=== PATIENT | male | born 1980 | race American Indian/Alaskan Native ===

== ENCOUNTER 2019-06-26 14:55 | Emergency (ER) | payer SELFPAY ==
[2019-06-26 15:05] VITALS: BP 132/95
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
== END 2019-06-26 17:39 | disposition home or self-care (01) ==
LOC: ED 14:55
DX: S02.2XXA Fracture of nasal bones, initial encounter for closed fracture (principal); R07.89 Other chest pain; G43.909 Migraine, unspecified, not intractable, without status migrainosus; F14.10 Cocaine abuse, uncomplicated; F17.200 Nicotine dependence, unspecified, uncomplicated; Z90.49 Acquired absence of other specified parts of digestive tract; Y04.8XXA Assault by other bodily force, initial encounter; Y93.89 Activity, other specified; Y92.89 Other specified places as the place of occurrence of the external cause; Y99.8 Other external cause status
CPT/HCPCS: 71046

== ENCOUNTER 2020-11-15 23:07 | Emergency (ER) | payer SELFPAY ==
[2020-11-16 02:37] VITALS: BP 146/100
== END 2020-11-16 02:01 | disposition left against medical advice (07) ==
LOC: ED 23:07
DX: R53.1 Weakness (principal); Z53.21 Procedure and treatment not carried out due to patient leaving prior to being seen by health care provider

== ENCOUNTER 2020-11-16 06:47 | Emergency (ER) | payer OTHER ==
[2020-11-16 07:38] VITALS: BP 146/95
--- NOTE | 2020-11-16 07:55 | Emergency Department Report ---
HPI - General Time Seen by Provider: 11/16/20 07:40 - HPI HPI: MSE 5 The patient is a 39-year-old male present with a chief complaint of cough. Patient states he came to the emergency department because he has had a cough productive of green sputum for the past 2 days. Patient denies history of fever. Patient denies having any other complaints. Patient states he received a Covid vaccination several months ago when he was incarcerated ED Past Medical Hx - Past Medical History Hx Headaches / Migraines: Yes Additional medical history: cocaine abuse - Surgical History Hx Appendectomy: Yes Additional Surgical History: Tonsillectomy - Family History Family history: no significant - Social History Smoking Status: Current Every Day Smoker (1/3 pack/day) Substance Use Type: Alcohol, Cocaine - Medications Home Medications: Home Medications Medication Instructions Recorded Confirmed Last Taken Type Albuterol Mdi (or & Nicu Only) 2 puff IH QID PRN #8.5 gram 11/16/20 Unknown Rx [ProAir HFA Inhaler] Azithromycin [Zithromax Z-YOANNA] 0 mg PO DAILY #6 tab 11/16/20 Unknown Rx Benzonatate [Tessalon Perles] 100 mg PO Q8HR #30 capsule 11/16/20 Unknown Rx Prednisone [predniSONE 10 mg 10 mg PO .TAPER #1 tab.ds.pk 11/16/20 Unknown Rx (6-Day Pack, 21 Tabs)] ED Review of Systems ROS: Stated complaint: COUGH Other details as noted in HPI Constitutional: denies: fever Eyes: denies: eye pain ENT: denies: throat pain Respiratory: cough Cardiovascular: denies: chest pain Endocrine: no symptoms reported Gastrointestinal: denies: abdominal pain Genitourinary: denies: dysuria Musculoskeletal: denies: back pain Neurological: denies: headache Physical Exam - Physical Exam Vital Signs: Vital Signs 11/16/20 11/16/20 07:06 07:07 Temperature 98.1 F 98.1 F Pulse Rate 86 87 Respiratory 18 Rate Blood Pressure 146/95 O2 Sat by Pulse 92 95 Oximetry Physical Exam: GENERAL: The patient is well-developed well-nourished male lying on stretcher sleeping not appearing to be in acute distress. Requires tactile stimulation to awaken HEENT: Normocephalic. Atraumatic. Extraocular motions are intact. Patient has moist mucous membranes. NECK: Supple. Trachea midline CHEST/LUNGS: Clear to auscultation. There is no respiratory distress noted. Occasional cough HEART/CARDIOVASCULAR: Regular. There is no tachycardia. There is no gallop rub or murmur. ABDOMEN: Abdomen is soft, nontender. Patient has normal bowel sounds. There is no abdominal distention. SKIN: There is no rash. There is no edema. There is no diaphoresis. NEURO: The patient is asleep requiring tactile and verbal stimulation to awaken but then he becomes oriented and answers questions appropriately. The patient is cooperative. The patient has no focal neurologic deficits. The patient has normal speech. GCS 14 MUSCULOSKELETAL:There is no evidence of acute injury. ED Course Vital Signs 11/16/20 11/16/20 07:06 07:07 Temperature 98.1 F 98.1 F Pulse Rate 86 87 Respiratory 18 Rate Blood Pressure 146/95 O2 Sat by Pulse 92 95 Oximetry - Reevaluation(s) Reevaluation #1: 11/16/20 10:28 2-minute walking SPO2 90% on room air ED Medical Decision Making - Lab Data Result diagrams: 11/16/20 08:00 11/16/20 08:00 Laboratory Tests 11/16/20 11/16/20 08:00 08:00 WBC 7.6 RBC 4.42 Hgb 13.3 Hct 39.7 MCV 90 MCH 30 MCHC 34 RDW 16.4 H Plt Count 367 Lymph % (Auto) 7.6 L Archuleta % (Auto) 14.5 H Eos % (Auto) 0.2 Baso % (Auto) 2.2 H Lymph # (Auto) 0.6 L Archuleta # (Auto) 1.1 H Eos # (Auto) 0.0 Baso # (Auto) 0.2 H Seg Neutrophils % 75.5 H Seg Neutrophils # 5.7 Sodium 134 L Potassium 3.9 Chloride 94.1 L Carbon Dioxide 26 Anion Gap 18 BUN 6 L Creatinine 0.6 L Estimated GFR > 60 BUN/Creatinine Ratio 10 Glucose 92 Calcium 8.7 - Radiology Data Radiology results: report reviewed (Chest x-ray), image reviewed (Chest x-ray) interpreted by me: Chest x-ray-no definite focal infiltrates, no pneumothorax [facility] [address] [place] [address] XRay Report Signed Patient: NADINE LEON MR#: [id number] : 1980 Acct:[id number] Age/Sex: 39 / M ADM Date: 11/16/20 Loc: ED Attending Dr: Ordering Physician: KIM RAMON MD Date of Service: 11/16/20 Procedure(s): XR chest routine 2V Accession Number(s): [id number] cc: KIM RAMON MD Fluoro Time In Minutes: CHEST 2 VIEWS INDICATION / CLINICAL INFORMATION: Cough. Shortness of breath. COMPARISON: 2 views of the chest dated 06/26/2019. FINDINGS: SUPPORT DEVICES: None. HEART / MEDIASTINUM: No significant abnormality. LUNGS / PLEURA: There are mild bibasilar opacities, left greater than right. The lungs are otherwise clear. No significant pleural effusion. No pneumothorax. ADDITIONAL FINDINGS: No significant additional findings. IMPRESSION: Suspected bibasilar pneumonia. Continued radiographic follow-up to resolution is recommended. Signer Name: David Leal MD Signed: 11/16/2020 9:08 AM Workstation Name: [id number] Transcribed By: MN Dictated By: David Leal MD Electronically Authenticated By: David Leal MD Signed Date/Time: 11/16/20907 DD/ 6 TD/TT: Print Cancel - Differential Diagnosis Pneumonia, bronchitis, URI, Covid Critical care attestation.: If time is entered above; I have spent that time in minutes in the direct care of this critically ill patient, excluding procedure time. ED Disposition Clinical Impression: Acute bronchitis Disposition: 01 HOME / SELF CARE / HOMELESS Is pt being admited?: No Does the pt Need Aspirin: No Condition: Stable Instructions: Acute Bronchitis (ED), Acute Bronchitis, Adult, [id number], COVID-19 Additional Instructions: Return to the emergency department should you develop worsening symptoms, inability to tolerate food or liquids, high fever or any other concerns Prescriptions: Prednisone [predniSONE 10 mg (6-Day Pack, 21 Tabs)] 10 mg PO .TAPER #1 tab.ds.pk Albuterol Mdi (or & Nicu Only) [ProAir HFA Inhaler] 2 puff IH QID PRN #8.5 gram PRN Reason: Shortness Of Breath Benzonatate [Tessalon Perles] 100 mg PO Q8HR #30 capsule Azithromycin [Zithromax Z-YOANNA] 0 mg PO DAILY #6 tab Referrals: NICA CASTANEDA MD [Staff Physician] - 3-5 Days [facility] [Provider Group] - 3-5 Days Time of Disposition: 10:31
[2020-11-16 08:30] LABS: Blood Urea Nitrogen 6 mg/dL (9-20); Calcium 8.7 mg/dL (8.4-10.2); Hemolysis Index 13
[2020-11-16 08:33] LABS: Basophils # (Auto) 0.2 K/mm3 (0.0-0.1); Basophils % (Auto) 2.2 % (0.0-1.8); Eosinophils % (Auto) 0.2 % (0.0-4.3); Hematocrit 39.7 % (35.5-45.6); Hemoglobin 13.3 gm/dl (11.8-15.2); Lymphocytes # (Auto) 0.6 K/mm3 (1.2-5.4); Lymphocytes % (Auto) 7.6 % (13.4-35.0); Mean Corpuscular HGB Conc 34 % (32-34); Mean Corpuscular Volume 90 fl (84-94); Monocytes # (Auto) 1.1 K/mm3 (0.0-0.8); Monocytes % (Auto) 14.5 % (0.0-7.3); Platelet Count 367 K/mm3 (140-440); Red Blood Count 4.42 M/mm3 (3.65-5.03); Red Cell Distribution Width 16.4 % (13.2-15.2)
[2020-11-16 08:35] LABS: BUN/Creatinine Ratio 10
--- NOTE | 2020-11-16 09:13 | XRay Report ---
CHEST 2 VIEWS INDICATION / CLINICAL INFORMATION: Cough. Shortness of breath. COMPARISON: 2 views of the chest dated 06/26/2019. FINDINGS: SUPPORT DEVICES: None. HEART / MEDIASTINUM: No significant abnormality. LUNGS / PLEURA: There are mild bibasilar opacities, left greater than right. The lungs are otherwise clear. No significant pleural effusion. No pneumothorax. ADDITIONAL FINDINGS: No significant additional findings. IMPRESSION: Suspected bibasilar pneumonia. Continued radiographic follow-up to resolution is recommended. Signer Name: David Leal MD Signed: 11/16/2020 9:08 AM Workstation Name: [id number]
== END 2020-11-16 10:43 | disposition home or self-care (01) ==
LOC: ED 06:47
DX: J20.9 Acute bronchitis, unspecified (principal); G43.909 Migraine, unspecified, not intractable, without status migrainosus; F12.90 Cannabis use, unspecified, uncomplicated; F14.10 Cocaine abuse, uncomplicated; F17.200 Nicotine dependence, unspecified, uncomplicated; Z90.49 Acquired absence of other specified parts of digestive tract; Z90.89 Acquired absence of other organs; Z72.89 Other problems related to lifestyle; Z79.899 Other long term (current) drug therapy
CPT/HCPCS: 36415; 71046; 80048; 85025; 99283

== ENCOUNTER 2020-12-20 09:39 | Emergency (ER) | payer SELFPAY ==
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
--- NOTE | 2020-12-20 10:13 | XRay Report ---
CHEST 1 VIEW INDICATION / CLINICAL INFORMATION: Altered Mental Status STUDY TIME: 952 COMPARISON: 11/16/2020 FINDINGS: SUPPORT DEVICES: None HEART / MEDIASTINUM: No significant abnormality. LUNGS / PLEURA: No significant acute pulmonary or pleural abnormality. No pneumothorax. ADDITIONAL FINDINGS: No significant additional findings. IMPRESSION: No significant acute abnormality Signer Name: Sanjay Avila MD Signed: 12/20/2020 10:08 AM Workstation Name: [id number]
[2020-12-20] MEDS ORDERED: SODIUM CHLORIDE 0.9% 1000 ML 1,000 ML IV ONE (10:15)
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
[2020-12-20 10:29] VITALS: BP 146/88
--- NOTE | 2020-12-21 09:47 | Electrocardiograph Report ---
[facility] Test Date: 2020-12-20 Test Time: 10:00:08 Pat Name: NADINE LEON Department: Room: Gender: M [employer]ic: : 1980 Requested By: BLANCA SEQUEIRA Order Number: [id number] Reading MD: Blade Celaya Measurements Intervals [place] Rate: 78 P: 81 [place]: 153 QRS: 84 QRSD: 103 T: 69 QT: 441 QTc: 503 Interpretive Statements Sinus rhythm Prolonged QT interval No previous ECG available for comparison Electronically Signed On 12-21-2020 9:47:09 EDT by Blade Celaya
== END 2020-12-20 11:19 | disposition left against medical advice (07) ==
LOC: ED 09:39
DX: R40.4 Transient alteration of awareness (principal); F17.200 Nicotine dependence, unspecified, uncomplicated; G43.909 Migraine, unspecified, not intractable, without status migrainosus; F14.90 Cocaine use, unspecified, uncomplicated; Z90.89 Acquired absence of other organs; Z72.89 Other problems related to lifestyle
CPT/HCPCS: 71045; 82962; 93005; 99284

== ENCOUNTER 2021-02-14 23:23 | Emergency (ER) | payer SELFPAY ==
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
[2021-02-15] MEDS ORDERED: HYDROcodone/ACETAMINOPHEN 10-325MG TAB PO ONE (11:18)
[2021-02-15] MEDS ORDERED: KETOROLAC 10 MG TAB PO ONE (11:18)
[2021-02-15 11:48] VITALS: BP 139/91
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
[2021-02-15] MEDS ORDERED: NEOMY 3.5 MG/BACIT 400 UNITS/POLY B 5000 UNITS/GM OINT PACKET TP ONE (12:34)
== END 2021-02-15 13:40 | disposition home or self-care (01) ==
LOC: ED 23:23
DX: S80.02XA Contusion of left knee, initial encounter (principal); L03.116 Cellulitis of left lower limb; G43.909 Migraine, unspecified, not intractable, without status migrainosus; F14.10 Cocaine abuse, uncomplicated; M25.462 Effusion, left knee; S80.212A Abrasion, left knee, initial encounter; X58.XXXA Exposure to other specified factors, initial encounter; Y93.89 Activity, other specified; Y92.89 Other specified places as the place of occurrence of the external cause; Y99.8 Other external cause status
CPT/HCPCS: 99284

== ENCOUNTER 2021-03-25 15:10 | Emergency (ER) | payer SELFPAY ==
[2021-03-25] MEDS ORDERED: NALOXONE 0.4 MG/1 ML INJ IV PRN (15:29)
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
[2021-03-26 02:47] LABS: Alanine Aminotransferase 21 units/L (7-56); Albumin 4.2 g/dL (3.9-5); BUN/Creatinine Ratio 10; Blood Urea Nitrogen 8 mg/dL (9-20); Calcium 9.5 mg/dL (8.4-10.2); Hemolysis Index 5
[2021-03-26 04:03] LABS: Basophils # (Auto) 0.1 K/mm3 (0.0-0.1); Basophils % (Auto) 1.1 % (0.0-1.8); Eosinophils # (Auto) 0.2 K/mm3 (0.0-0.4); Eosinophils % (Auto) 3.7 % (0.0-4.3); Hematocrit 45.2 % (35.5-45.6); Hemoglobin 14.8 gm/dl (11.8-15.2); Lymphocytes # (Auto) 1.4 K/mm3 (1.2-5.4); Lymphocytes % (Auto) 24.8 % (13.4-35.0); Mean Corpuscular HGB Conc 33 % (32-34); Mean Corpuscular Volume 92 fl (84-94); Monocytes # (Auto) 0.6 K/mm3 (0.0-0.8); Monocytes % (Auto) 11.1 % (0.0-7.3); Platelet Count 466 K/mm3 (140-440); Red Blood Count 4.92 M/mm3 (3.65-5.03); Red Cell Distribution Width 15.5 % (13.2-15.2)
[2021-03-26 07:25] VITALS: BP 127/82
== END 2021-03-26 07:25 | disposition home or self-care (01) ==
LOC: ED 15:10
DX: T40.1X1A Poisoning by heroin, accidental (unintentional), initial encounter (principal); F11.129 Opioid abuse with intoxication, unspecified; Z79.899 Other long term (current) drug therapy; Y92.89 Other specified places as the place of occurrence of the external cause
CPT/HCPCS: 36415; 80053; 80320; 83735; 85025; 99283; G0480

== ENCOUNTER 2021-03-28 02:39 | Emergency (ER) | payer SELFPAY ==
--- NOTE | 2021-03-28 06:28 | Emergency Department Report ---
ED Lower Extremity HPI - General Stated Complaint: LEG PAIN Time Seen by Provider: 03/28/21 06:26 - History of Present Illness Initial Comments: Patient presents with left knee pain. He has had chronic knee pain for "some time." Patient states that the pain is more medial and lateral. Medial side is more tender than the lateral side. He fell on it months ago. He has had ongoing and chronic pain. He does not know why. He has not taken anything s pecifically for this. There is no new trauma. Has no new fevers or chills. There is no new cough or congestion. He has no ankle pain or hip pain on the left. He has no other joint pain. He came in tonight because he wanted something for pain and he is tired of hurting. Patient has no other complaints at this time. The pain is exacerbated by walking and palpation. - Related Data Previous Rx's Medication Instructions Recorded Last Taken Type Albuterol Mdi (or & Nicu Only) 2 puff IH QID PRN #8.5 gram 11/16/20 Unknown Rx [ProAir HFA Inhaler] Ibuprofen [Motrin] 600 mg PO Q8H PRN #20 tablet 03/28/21 Unknown Rx Allergies Allergy/AdvReac Type Severity Reaction Status Date / Time No Known Allergies Allergy Verified 02/15/21 00:26 ED Review of Systems ROS: Stated complaint: LEG PAIN Other details as noted in HPI Comment: All other systems reviewed and negative Constitutional: denies: fever Eyes: denies: eye pain ENT: denies: throat pain Respiratory: denies: cough Cardiovascular: denies: chest pain Endocrine: denies: unexplained weight loss Gastrointestinal: denies: abdominal pain Genitourinary: denies: dysuria Musculoskeletal: as per HPI Skin: denies: rash Neurological: denies: headache Hematological/Lymphatic: denies: easy bruising ED Past Medical Hx - Past Medical History Hx Headaches / Migraines: Yes Additional medical history: cocaine abuse. Chronic knee pain - Surgical History Hx Appendectomy: Yes Additional Surgical History: Tonsillectomy - Family History Family history: no significant - Social History Smoking Status: Current Every Day Smoker (1/3 pack/day) Substance Use Type: Alcohol, Cocaine - Medications Home Medications: Home Medications Medication Instructions Recorded Confirmed Last Taken Type Albuterol Mdi (or & Nicu Only) 2 puff IH QID PRN #8.5 gram 11/16/20 Unknown Rx [ProAir HFA Inhaler] Ibuprofen [Motrin] 600 mg PO Q8H PRN #20 tablet 03/28/21 Unknown Rx ED Physical Exam - General Limitations: No Limitations, Other (Pulse ox noted and normal) General appearance: alert, in no apparent distress - Head Head exam: Present: atraumatic, normocephalic - Eye Eye exam: Present: normal appearance, EOMI - ENT ENT exam: Present: normal external ear exam - Neck Neck exam: Present: normal inspection. Absent: meningismus - Respiratory Respiratory exam: Absent: respiratory distress - Cardiovascular Cardiovascular Exam: Absent: JVD - Extremities Exam Extremities exam: Present: normal capillary refill, other (Tenderness diffusely involving the medial aspect of the left knee. There is no effusion. There is no erythema. There is no ligamentous instability. Patella is not ballotable and there is no patellar tenderness.) - Back Exam Back exam: Present: full ROM - Neurological Exam Neurological exam: Present: alert, oriented X3, abnormal gait (Antalgic) - Psychiatric Psychiatric exam: Present: normal affect, normal mood - Skin Skin exam: Present: warm, dry ED Course Vital Signs 03/28/21 06:30 Temperature 98 F Pulse Rate 78 Respiratory 18 Rate Blood Pressure 136/78 O2 Sat by Pulse 100 Oximetry - Reevaluation(s) Reevaluation #1: 03/28/21 06:41 Patient was discharged. ED Lower Extremity MDM - Medical Decision Making Patient presents with an exacerbation of chronic knee pain. He does not have a polyarticular arthritis. I am not concerned for any kind of infectious pathology as there is no warmth or erythema. He has no recent trauma that would suggest acute fracture or dislocation. There is no effusion. This certainly is not concerning for septic arthritis at this time. Patient was treated empirically and referred to orthopedic surgery. Critical Care Time: No Critical care attestation.: If time is entered above; I have spent that time in minutes in the direct care of this critically ill patient, excluding procedure time. ED Disposition Clinical Impression: Chronic knee pain Qualifiers: Laterality: left Qualified Code(s): M25.562 - Pain in left knee Disposition: HOME / SELF CARE / HOMELESS Is pt being admited?: No Condition: Stable Instructions: Chronic Knee Pain, Adult, [id number] Additional Instructions: ICE AND ELEVATE. SEE A REGULAR DOCTOR. Prescriptions: Ibuprofen [Motrin] 600 mg PO Q8H PRN #20 tablet PRN Reason: Pain Referrals: CY EDEN MD [Staff Physician] - 3-5 Days
[2021-03-28 06:39] VITALS: BP 136/78
== END 2021-03-28 06:39 | disposition home or self-care (01) ==
LOC: ED 02:39
DX: M25.562 Pain in left knee (principal); G43.909 Migraine, unspecified, not intractable, without status migrainosus
CPT/HCPCS: 99282

== ENCOUNTER 2021-04-26 09:22 | Emergency (ER) | payer SELFPAY ==
--- NOTE | 2021-04-26 09:49 | Emergency Department Report ---
ED General Adult HPI - General Chief complaint: Pain General Stated complaint: HOMELESS SLEEPING IN FAMILY [employer]LLAR WITH TOE PAIN - History of Present Illness Initial comments: Patient was brought in by EMS for possible foot pain. They state that they were called because the patient walked into a store and lay down on the floor. When they arrived on scene, the patient stated that he was just cold. They informed him that lying on the floor in a public store was not a place to get warm. He then reported to them that he had toe pain and wanted to come here. They transported the patient here. They did state that when they were trying to get vitals he was very aggressive and abrupt with him. He became combative when they were trying to check vitals. Upon arrival here, patient is in a wheelchair. I tried to ask him what is going on. He will not cooperate. He will say that his toe hurts, but then would not tell me which foot. He would not tell me if there was an injury. He would not answer questions. I tried to talk to him with paramedics around as well as other staff. He just kept his head covered up with his coat and would not answer questions. I asked if I could take his sock off and look at his foot. He told me "not do not worry about it." It just hurts. I offered analgesics. The patient remained mute. - Related Data Previous Rx's Medication Instructions Recorded Last Taken Type Albuterol Mdi (or & Nicu Only) 2 puff IH QID PRN #8.5 gram 11/16/20 Unknown Rx [ProAir HFA Inhaler] Ibuprofen [Motrin] 600 mg PO Q8H PRN #20 tablet 03/28/21 Unknown Rx Allergies Allergy/AdvReac Type Severity Reaction Status Date / Time No Known Allergies Allergy Verified 02/15/21 00:26 ED Review of Systems ROS: Stated complaint: HOMELESS SLEEPING IN FAMILY DOLLAR WITH TOE PAIN Other details as noted in HPI Comment: Unobtainable due to pts medical conditions (Uncooperative) ED Past Medical Hx - Past Medical History Hx Headaches / Migraines: Yes Additional medical history: Cannot be obtained from the patient secondary to uncooperative nature. Cocaine abuse. Chronic knee pain - Surgical History Hx Appendectomy: Yes Additional Surgical History: Cannot be obtained from the patient secondary to uncooperative nature. Tonsillectomy - Family History Family history: other (Cannot be obtained from the patient secondary to uncooperative nature) - Social History Smoking Status: Current Every Day Smoker (1/3 pack/day) Substance Use Type: Alcohol, Cocaine, Other (Cannot be obtained from the patient secondary to uncooperative nature) - Medications Home Medications: Home Medications Medication Instructions Recorded Confirmed Last Taken Type Albuterol Mdi (or & Nicu Only) 2 puff IH QID PRN #8.5 gram 11/16/20 Unknown Rx [ProAir HFA Inhaler] Ibuprofen [Motrin] 600 mg PO Q8H PRN #20 tablet 03/28/21 Unknown Rx ED Physical Exam - General Limitations: Physical Limitation (Cannot be obtained from the patient secondary to uncooperative nature), Other (Pulse ox was noted by paramedics. Patient became combative when we tried to get vitals.) General appearance: alert, other (Sitting in a wheelchair with his head covered up in a coat. He is unkempt. He will not answer questions.) - Psychiatric Psychiatric exam: Present: other (He is uncooperative. He does move his arms in a combative nature. He will not allow any other exam.) ED Course - Reevaluation(s) Reevaluation #1: 04/26/21 09:48 EMS was met upon arrival. We attempted to examine the patient and discuss care with the patient. We attempted to provide services and obtain vitals. He be came combative and agitated. He was swinging at staff. At this point, we attempted to have him sign out AGAINST MEDICAL ADVICE because he would not cooperate. He would not allow any intervention. He refused to sign anything. Critical Care Time: No Critical care attestation.: If time is entered above; I have spent that time in minutes in the direct care of this critically ill patient, excluding procedure time. ED Disposition Clinical Impression: Homelessness, Uncooperative behavior Disposition: 01 HOME / SELF CARE / HOMELESS Is pt being admited?: No Condition: Stable Forms: AMA Form
== END 2021-04-26 09:26 | disposition left against medical advice (07) ==
LOC: ED 09:22
DX: R46.89 Other symptoms and signs involving appearance and behavior (principal); Z59.00 Homelessness unspecified; Z90.89 Acquired absence of other organs
CPT/HCPCS: 99283

== ENCOUNTER 2021-08-19 01:05 | Emergency (ER) | payer SELFPAY ==
[2021-08-19] MEDS ORDERED: SODIUM CHLORIDE 0.9% 1000 ML 1,000 ML IV ONE (02:15)
[2021-08-19 02:48] LABS: Basophils # (Auto) 0.1 K/mm3 (0.0-0.1); Eosinophils # (Auto) 0.3 K/mm3 (0.0-0.4); Eosinophils % (Auto) 4.9 % (0.0-4.3); Hematocrit 40.1 % (35.5-45.6); Hemoglobin 13.5 gm/dl (11.8-15.2); Lymphocytes # (Auto) 2.1 K/mm3 (1.2-5.4); Lymphocytes % (Auto) 39.3 % (13.4-35.0); Mean Corpuscular HGB Conc 34 % (32-34); Mean Corpuscular Volume 93 fl (84-94); Monocytes # (Auto) 0.5 K/mm3 (0.0-0.8); Monocytes % (Auto) 9.8 % (0.0-7.3); Platelet Count 253 K/mm3 (140-440); Red Blood Count 4.32 M/mm3 (3.65-5.03); Red Cell Distribution Width 15.8 % (13.2-15.2)
[2021-08-19 02:54] LABS: Alanine Aminotransferase 23 units/L (7-56); BUN/Creatinine Ratio 13; Blood Urea Nitrogen 10 mg/dL (9-20); Calcium 8.9 mg/dL (8.4-10.2); Hemolysis Index 6
[2021-08-19 04:26] LABS: Bilirubin,Urine NEG (Negative); Blood,Urine NEG (Negative); Color,Urine Yellow (Yellow); Protein,Urine <15 mg/dL mg/dL (Negative); Urobilinogen,Urine < 2.0 mg/dL (<2.0)
[2021-08-19 04:33] LABS: Hyaline Casts,Urine 2 /LPF; Mucus,Urine FEW /HPF; RBC,Urine < 1.0 /HPF (0.0-6.0); WBC,Urine < 1.0 /HPF (0.0-6.0)
[2021-08-19 04:35] LABS: Amphetamine Screen,Urine Negative; Benzodiazepines Screen,Urine Negative; Cannabinoid Screen,Urine Negative; Methadone Screen,Urine Negative; Opiate Screen,Urine Negative
--- NOTE | 2021-08-19 05:15 | Emergency Department Report ---
<SHARDA ALEXANDER - Last Filed: 08/19/21 18:31> ED General Adult HPI - General Chief complaint: Medical Clearance Stated complaint: ETOH Time Seen by Provider: 08/19/21 02:06 - Related Data Previous Rx's Medication Instructions Recorded Last Taken Type Albuterol Mdi (or & Nicu Only) 2 puff IH QID PRN #8.5 gram 11/16/20 Unknown Rx [ProAir HFA Inhaler] Ibuprofen [Motrin] 600 mg PO Q8H PRN #20 tablet 03/28/21 Unknown Rx Allergies Allergy/AdvReac Type Severity Reaction Status Date / Time No Known Allergies Allergy Verified 02/15/21 00:26 ED Past Medical Hx - Medications Home Medications: Home Medications Medication Instructions Recorded Confirmed Last Taken Type Albuterol Mdi (or & Nicu Only) 2 puff IH QID PRN #8.5 gram 11/16/20 Unknown Rx [ProAir HFA Inhaler] Ibuprofen [Motrin] 600 mg PO Q8H PRN #20 tablet 03/28/21 Unknown Rx ED Course - Reevaluation(s) Reevaluation #1: 08/19/21 15:[address] OUT [address] RODRIGUEZ; WILL FOLLOW UP ON THE CT IMAGE. 08/19/21 18:31 CT SCAN CAME BACK WITH NO ACUTE FINDING. I HAVE SEEN THE PATIENT MYSELF AND PATIENT IS ASLEEP STATES HE WANTS FOOD. PATIENT IS AOX4 KNOWS [employer] OF [employer] ([employer] TO [facility]. KNOWS WE ARE IN JULY 2021 AND HE IS IN HOSPITAL. I WILL D/C PATIENT. ED Medical Decision Making - Lab Data Result diagrams: 08/19/21 02:25 08/19/21 02:25 ED Disposition Clinical Impression: Alcohol intoxication, Cocaine abuse Disposition: 01 HOME / SELF CARE / HOMELESS Is pt being admited?: No Does the pt Need Aspirin: No Condition: Stable Instructions: Substance Use Disorder and Mental Illness Referrals: PRIMARY CARE, [Primary Care Provider] - 3-5 Days Time of Disposition: 18:33 <DAX SHEEHAN - Last Filed: 08/19/21 21:37> ED General Adult HPI - General PUI?: No Source: EMS Mode of arrival: Ambulatory Limitations: No Limitations - History of Present Illness Initial comments: PD CALLED EMS FOR PT PASSED OUT ON SIDE OF THE ROAD, POSSIBLE ETOH, PT UNCOOPERATIVE WITH EMS D-STICK 93 -: hour(s) Severity scale (0 -10): 0 Associated Symptoms: denies: denies other symptoms, confusion, chest pain ED Review of Systems ROS: Stated complaint: ETOH Other details as noted in HPI Comment: Unobtainable due to pts medical conditions ED Past Medical Hx - Past Medical History Previous Medical History?: Yes Hx Liver Disease: Yes Hx Headaches / Migraines: Yes Additional medical history: Cannot be obtained from the patient secondary to uncooperative nature. Cocaine abuse. Chronic knee pain - Surgical History Past Surgical History?: Yes Hx Appendectomy: Yes Additional Surgical History: Cannot be obtained from the patient secondary to uncooperative nature. Tonsillectomy - Social History Smoking Status: Current Every Day Smoker Substance Use Type: Alcohol ED Physical Exam - General Limitations: No Limitations General appearance: appears intoxicated - Head Head exam: Present: atraumatic, normocephalic - Eye Eye exam: Present: normal appearance - ENT ENT exam: Present: mucous membranes moist - Neck Neck exam: Present: normal inspection - Respiratory Respiratory exam: Present: normal lung sounds bilaterally. Absent: respiratory distress - Cardiovascular Cardiovascular Exam: Present: regular rate, normal rhythm. Absent: systolic murmur, diastolic murmur, rubs, gallop - GI/Abdominal GI/Abdominal exam: Present: soft, normal bowel sounds - Rectal Rectal exam: Present: deferred - Extremities Exam Extremities exam: Present: normal inspection - Back Exam Back exam: Present: normal inspection - Skin Skin exam: Present: warm, dry, intact, normal color. Absent: rash ED Course Vital Signs 08/19/21 08/19/21 08/19/21 01:31 01:46 02:35 Temperature 98.5 F Pulse Rate 84 Respiratory 16 15 Rate Blood Pressure 152/104 Blood Pressure [Left] O2 Sat by Pulse 98 99 99 Oximetry 08/19/21 08/19/21 08/19/21 02:45 03:01 03:15 Temperature Pulse Rate 76 76 70 Respiratory 22 15 14 Rate Blood Pressure 128/91 134/88 134/88 Blood Pressure [Left] O2 Sat by Pulse 99 100 Oximetry 08/19/21 08/19/21 08/19/21 03:31 03:45 04:01 Temperature Pulse Rate 66 64 67 Respiratory 14 13 14 Rate Blood Pressure 134/88 134/88 93/58 Blood Pressure [Left] O2 Sat by Pulse Oximetry 08/19/21 08/19/21 08/19/21 09:44 12:10 20:26 Temperature Pulse Rate 87 80 85 Respiratory 17 17 18 Rate Blood Pressure Blood Pressure 140/85 132/85 125/69 [Left] O2 Sat by Pulse 99 99 99 Oximetry ED Medical Decision Making - Lab Data Result diagrams: 08/19/21 02:25 08/19/21 02:25 Critical care attestation.: If time is entered above; I have spent that time in minutes in the direct care of this critically ill patient, excluding procedure time. ED Disposition Is pt being admited?: No Does the pt Need Aspirin: No
[2021-08-19 05:16] LABS: Cocaine Screen,Urine Positive
--- NOTE | 2021-08-19 14:48 | Emergency Department Report ---
Blank Doc - Documentation Documentation: 40-year-old male signed out to me this morning for alcohol intoxication and co cora intoxication. Plan was to discharge once clinically sober. Throughout my shift since 6 AM patient continues to be very sleepy. Patient has ambulated from nursing also eaten several trays of food. Patient is still not alert enough for discharge. Alcohol level was 0. UDS positive for cocaine. As per initial physician HPI patient has passed out on side of the road. Given prolonged period of sedation CT head and cervical spine have been ordered since patient requires signout to oncoming provider Dr Arambula.
--- NOTE | 2021-08-19 18:09 | Cat Scan Report ---
CT head/brain wo con INDICATION / CLINICAL INFORMATION: 40 years Male; passed out, drug abuse, prolonged sedation. TECHNIQUE: Routine CT head without contrast. All CT scans at this location are performed using CT dos e reduction for ALARA by means of automated exposure control. COMPARISON: None. FINDINGS: BRAIN / INTRACRANIAL CONTENTS: No acute hemorrhage, mass effect, midline shift, hydrocephalus, or acu te, large territorial infarct. No signs of significant atrophy or chronic infarct. No significant whi te matter abnormality seen. CRANIOCERVICAL JUNCTION: No significant abnormality. ORBITS: No significant abnormality of visualized orbits. SINUSES / MASTOIDS: Mucous retention cyst/polyp is seen in the right maxillary antrum. Mild mucosal t hickening noted in the ethmoids. Desiccated secretions seen in the right sphenoid sinus. ADDITIONAL FINDINGS: None. IMPRESSION: 1. No focal mass, hemorrhage, hydrocephalus, or acute, large territorial infarct. Signer Name: Steven Mendenhall MD, III Signed: 08/19/2021 6:05 PM Workstation Name: [id number]
--- NOTE | 2021-08-19 18:21 | Cat Scan Report ---
CT cervical spine wo con INDICATION / CLINICAL INFORMATION: 40 years Male; found passed out on side of road. TECHNIQUE: Axial CT images of the cervical spine were obtained. Sagittal and coronal reformatted images were pr oduced. All CT scans at this location are performed using CT dose reduction for ALARA by means of aut omated exposure control. COMPARISON: None available. FINDINGS: POST-SURGICAL CHANGES: None identified. ALIGNMENT: There is mild reversal of the cervical lordosis and curvature of the cervical spine, conve x toward the right. However, there is no significant spondylolisthesis. VERTEBRAE: There is no CT evidence of acute fracture of the cervical spine. This mild disc space narr owing with mild anterior osteophytic formation at C5-6 and C6-7. INTRAVERTEBRAL DISCS: The central disc bulge at C5-6 effaces the ventral subarachnoid space at. There is mild left foraminal narrowing at. There also appears be central disc bulge at C6-7 with mild effa cement of the right lateral recess. PARASPINAL SOFT TISSUES: No prevertebral soft tissue fluid collections are identified. ADDITIONAL FINDINGS: None. IMPRESSION: 1. There is no CT evidence of acute fracture of the cervical spine. Signer Name: Giovanni Lagunas MD Signed: 08/19/2021 6:17 PM Workstation Name: [id number]
[2021-08-19 20:27] VITALS: BP 125/69
== END 2021-08-19 20:27 | disposition home or self-care (01) ==
LOC: ED 01:05
DX: F10.129 Alcohol abuse with intoxication, unspecified (principal); F14.10 Cocaine abuse, uncomplicated; Z79.899 Other long term (current) drug therapy
CPT/HCPCS: 36415; 70450; 72125; 80053; 80307; 80320; 81001; 82962; 83690; 85025; 96360; 99285; G0480

== ENCOUNTER 2021-09-03 14:25 | Emergency (ER) | payer SELFPAY ==
[2021-09-03 14:36] VITALS: BP 122/86
--- NOTE | 2021-09-03 14:41 | Event Note ---
ED Screening Note ED Screening Note: CO CP WHILE ON [employer] BUS HE DID NOT HAVE MONEY FOR ARLNE AND THATS WHEN HE CO PAIN CALLED E TRIAGE IN MAIN This initial assessment/diagnostic orders/clinical plan/treatment(s) is/are subject to change based on patients health status, clinical progression and re- assessment by fellow clinical providers in the ED. Further treatment and workup at subsequent clinical providers discretion. Patient/guardian urged not to elope from the ED as their condition may be serious if not clinically assessed and managed. Initial orders include: REEVAL
== END 2021-09-05 10:19 | disposition left against medical advice (07) ==
LOC: ED 14:25
DX: R51.9 Headache, unspecified (principal); Z53.21 Procedure and treatment not carried out due to patient leaving prior to being seen by health care provider